=== PATIENT | male | born 1990 | race Caucasian/White ===

== ENCOUNTER → 2016-07-27 | Outpatient (REF) ==
[~2016-07-27] MED LIST: ENTOCORT EC3 MG PO; MULTIPLE VITAMI1 TA5 PO; PENTASA500 MG PO
== END ==
LOC: WSOH 08:00
DX: Z02.89 Encounter for other administrative examinations (principal)

== ENCOUNTER 2016-11-23 19:51 | Emergency (ER) | payer BC ==
[~2016-11-23] VITALS: Ht 185.4 cm; Wt 79.5 kg
[2016-11-23 19:52] VITALS: TEMP 96.9
[2016-11-23] MEDS ORDERED: PENTASA500 MG PO (19:58)
[2016-11-23] MEDS ORDERED: ENTOCORT EC3 MG PO (19:59)
[2016-11-23] MEDS ORDERED: MULTIPLE VITAMI1 TA5 PO (19:59)
[2016-11-23 20:10] LABS: MEAN CELL VOLUME 70 fl (80.0-100.0); MEAN CORPUSCULAR HGB CONC 30 g/dl (33.0-37.0); MEAN PLATELET VOLUME 8.9 fl (7.4-10.4); PLATELET COUNT 401 K/mm3 (130-400); RED BLOOD COUNT 4.91 M/mm3 (4.20-5.60); REDCELL DISTRIBUTION WIDTH-CV 16.5 % (11.5-14.5); WHITE BLOOD COUNT 14.6 K/mm3 (4.8-10.8)
[2016-11-23 20:14] LABS: HEMOGLOBIN 10.4 g/dl (13.5-18.0); MEAN CORPUSCULAR HEMOGLOBIN 21 pg (27.0-31.0)
[2016-11-23 20:15] LABS: ADD PATHOLOGY DIFF REVIEW NO; HEMATOCRIT 34.5 % (42.0-52.0)
[2016-11-23 20:22] LABS: ADJUSTED CALCIUM 8.8 mg/dL (8.4-10.2); ALBUMIN 3.8 gm/dL (3.5-5.0); BILIRUBIN,TOTAL 0.3 mg/dL (0.0-1.0); C-REACTIVE PROTEIN 0.8 mg/dL (0.0-0.9); CALCIUM 8.6 mg/dL (8.4-10.2); CREATININE, serum 0.93 mg/dL (0.66-1.25); POTASSIUM 3.5 mmol/L (3.4-5.0); TOTAL PROTEIN 6.7 gm/dL (6.4-8.2)
[2016-11-23 20:27] LABS: BAND 6 % (0-10); METAMYELOCYTE 2 % (0-0); NEUTROPHILS 63 % (42.0-75.2); TOTAL CELLS COUNTED 100
[2016-11-23 20:28] LABS: HYPOCHROMIA 1+; OVALOCYTES 1+; POLYCHROMASIA 1+; SCHISTOCYTES 1+
[2016-11-23 20:29] LABS: ANISOCYTOSIS 1+; POIKILOCYTOSIS 2+
[2016-11-23 20:30] LABS: ERYTHROCYTE SEDIMENTATION RATE 11 mm/hr (0-15)
[2016-11-23 20:36] LABS: PROLACTIN 48.2 ng/mL (3.7-17.9)
[2016-11-23 21:41] VITALS: BP 110/69; PULSE 76
== END 2016-11-23 21:42 | disposition home or self-care (01) ==
LOC: COL.ER 19:51
PROVIDERS: Emergency Medicine
DX: R55 Syncope and collapse (principal); R56.9 Unspecified convulsions; K50.90 Crohn's disease, unspecified, without complications
CPT/HCPCS: J1885; J2060; J7030